=== PATIENT | female | born 1995 | race Caucasian/White ===

== ENCOUNTER 2024-09-03 18:39 | Emergency (ER) | payer OTHER, SELFPAY ==
[2024-09-03 18:46] VITALS: BP 130/80; PULSE 73; RESP 16; TEMP 36.8; O2SAT 97; BMI 27.5
== END 2024-09-03 19:37 | disposition left against medical advice (07) ==
PROVIDERS: Emergency Provider Emergency Medicine Emergency Medical Services
DX: Z53.21 Procedure and treatment not carried out due to patient leaving prior to being seen by health care provider (principal)